=== PATIENT | female | born 1955 | race Caucasian/White ===

== ENCOUNTER 2017-10-04 13:30 | Inpatient (IN) | payer BC, OTHER ==
[~2017-10-04] VITALS: Ht 165.1 cm; Wt 49.9 kg
[2017-10-04] MEDS ORDERED: CYAN100071 PO (14:53)
[2017-10-04] MEDS ORDERED: CLON0.1T PO (14:53)
[2017-10-04] MEDS ORDERED: DICY10CA13 PO (14:53)
[2017-10-04] MEDS ORDERED: AMPH20CA3 PO (14:53)
[2017-10-04] MEDS ORDERED: MAG HYDROX/AL HYDROX/SIMETH 30 ML LIQUID UDC PO PRN (15:00)
[2017-10-04] MEDS ORDERED: MAGNESIUM HYDROXIDE 30 ML LIQUID UDC PO PRN (15:00)
[2017-10-04] MEDS ORDERED: DIAZEPAM 5 MG TABLET PO PRN (15:00)
[2017-10-04] MEDS ORDERED: IBUPROFEN 600 MG TABLET PO PRN (15:00)
[2017-10-04] MEDS ORDERED: DOCUSATE SODIUM 250 MG CAPSULE PO PRN (15:00)
[2017-10-04] MEDS ORDERED: LORAZEPAM 2 MG/1 ML VIAL IM PRN (15:00)
[2017-10-04] MEDS ORDERED: DIAZEPAM 10 MG TABLET PO PRN (15:00)
[2017-10-04] MEDS ORDERED: CLONIDINE HCL 0.1 MG TABLET PO PRN (15:00)
[2017-10-04] MEDS ORDERED: METHOCARBAMOL 750 MG TABLET PO PRN (15:00)
[2017-10-04] MEDS ORDERED: LOPERAMIDE HCL 2 MG CAPSULE PO PRN ×2 (15:00)
[2017-10-04 15:26] LABS: *URINE HCG, QUAL NEGATIVE (NEGATIVE)
[2017-10-04 15:34] LABS: *AMPHETAMINE, URINE POSITIVE (NEGATIVE); *BARBITURATE, URINE NEGATIVE (NEGATIVE); *CANNABINOID, URINE NEGATIVE (NEGATIVE); *COCCAINE, URINE NEGATIVE (NEGATIVE); *OPIATE, URINE NEGATIVE (NEGATIVE); *PHENCYCLIDINE SCREEN,URINE NEGATIVE (NEGATIVE)
[2017-10-04 15:54] LABS: BASOPHILS # (AUTO) 0.1 K/uL (0.0-8.0); EOSINOPHILS % (AUTO) 0.2 % (0.0-7.0); HEMATOCRIT 40.7 % (31.2-41.9); HEMOGLOBIN 13.9 g/dL (10.9-14.3); LYMPHOCYTES # (AUTO) 2.2 K/uL (20.0-40.0); LYMPHOCYTES % (AUTO) 24.3 % (20.5-51.5); MEAN CORPUSCULAR HEMOGLOBIN 30.6 uug (24.7-32.8); MEAN CORPUSCULAR HGB CONC 34 g/dL (32.3-35.6); MEAN CORPUSCULAR VOLUME 89.7 fL (75.5-95.3); MONOCYTES # (AUTO) 0.8 K/uL (2.0-10.0); MONOCYTES % (AUTO) 8.9 % (0.0-11.0); NEUTROPHILS # (AUTO) 5.8 K/uL (1.8-8.9); NEUTROPHILS % (AUTO) 65.6 % (38.5-71.5); PLATELET COUNT (AUTO) 336 K/uL (179-408); RED BLOOD CELL COUNT(AUTO) 4.54 MIL/uL (3.63-4.92); WHITE BLOOD COUNT (AUTO) 8.9 K/uL (3.8-11.8)
[2017-10-04 15:56] VITALS: BP 132/79
[2017-10-04] MEDS: DIAZEPAM 10 MG TABLET PO SCH ×3 (15:58→21:03)
[2017-10-04 16:05] LABS: ALANINE AMINOTRANSFERASE 15 U/L (14-59); ALKALINE PHOSPHATASE 114 U/L (50-136); ASPARTATE AMINOTRANSFERASE 13 U/L (15-37); BILIRUBIN,TOTAL 0.3 mg/dL (0.2-1.0); CARBON DIOXIDE 27 mmol/L (21-32); CHLORIDE 103 mmol/L (98-107); CHOLESTEROL 237 mg/dL (<200); CREATININE 0.8 mg/dL (0.6-1.3); GLUCOSE 106 mg/dL (74-106); HDL CHOLESTEROL 83 mg/dL (40-60); MAGNESIUM 1.9 mg/dL (1.8-2.4); POTASSIUM 3.9 mmol/L (3.5-5.1); TOTAL PROTEIN, SERUM 7.9 g/dL (6.4-8.2); TRIGLYCERIDES 145 MG/DL (30-150); UREA NITROGEN, BLOOD 19 mg/dL (7-18)
[2017-10-04 16:14] LABS: THYROID STIMULATING HORMONE 0.942 mIU/mL (0.358-3.740)
[2017-10-04] MEDS ORDERED: DICL100G16 TP (16:18)
[2017-10-04] MEDS ORDERED: ALBU8.5H8 INH (16:19)
[2017-10-04 17:13] VITALS: BP 130/73
[2017-10-04] MEDS ORDERED: PATIENT MAY USE OWN MED- MD OK TOP PRN (17:15)
[2017-10-04] MEDS ORDERED: PATIENT MAY USE OWN MED- MD OK INH PRN (17:15)
[2017-10-04] MEDS: ONDANSETRON ODT 4 MG TAB.RAPDIS SL PRN (18:27)
[2017-10-04 18:34] LABS: ETHANOL < 3 MG/DL (0-0)
[2017-10-04 20:00] VITALS: BP 118/80
[2017-10-04] MEDS: ACETAMINOPHEN 325 MG TABLET PO PRN (21:02)
[2017-10-04] MEDS: diphenhydrAMINE 50 MG CAPSULE PO PRN (21:03)
[2017-10-04] MEDS: DICYCLOMINE HCL 20 MG TABLET PO PRN (21:03)
[2017-10-04] MEDS: ONDANSETRON 4 MG/2 ML VIAL IM PRN (21:28)
[2017-10-05] VITALS: BP 118/82
[2017-10-05] MEDS: HYDROXYZINE PAMOATE 25 MG CAPSULE PO PRN ×3 (00:10→22:05)
[2017-10-05 04:00] VITALS: BP 113/66
[2017-10-05] MEDS: DIAZEPAM 10 MG TABLET PO PRN (04:35)
[2017-10-05] MEDS: ONDANSETRON 4 MG/2 ML VIAL IM PRN ×3 (06:46→21:03)
[2017-10-05] MEDS ORDERED: TUBERCULIN,PURIF.PROT.DERIV. 5 TU/0.1 ML TEST ID ONE (09:00)
[2017-10-05 09:27] VITALS: BP 112/80
[2017-10-05] MEDS: ACETAMINOPHEN 325 MG TABLET PO PRN ×2 (09:31→21:01)
[2017-10-05] MEDS: DICYCLOMINE HCL 20 MG TABLET PO PRN (09:31)
[2017-10-05] MEDS: DIAZEPAM 10 MG TABLET PO SCH ×3 (09:31→21:02)
[2017-10-05 13:15] VITALS: BP 125/74
[2017-10-05 17:05] VITALS: BP 118/72
[2017-10-05 20:00] VITALS: BP 110/73
[2017-10-05] MEDS: CLONIDINE HCL 0.1 MG TABLET PO SCH (21:01)
[2017-10-05] MEDS: BACLOFEN 10 MG TABLET PO SCH (21:02)
[2017-10-05] MEDS: diphenhydrAMINE 50 MG CAPSULE PO PRN (22:05)
[2017-10-06] VITALS: BP 94/66
[2017-10-06] MEDS: DIAZEPAM 10 MG TABLET PO PRN (00:19)
[2017-10-06 08:00] VITALS: BP 94/66
[2017-10-06] MEDS: BACLOFEN 10 MG TABLET PO SCH ×2 (09:10→21:21)
[2017-10-06] MEDS: DIAZEPAM 5 MG TABLET PO SCH ×3 (09:11→16:21)
[2017-10-06] MEDS: CLONIDINE HCL 0.1 MG TABLET PO SCH ×2 (09:11→21:21)
[2017-10-06] MEDS: ACETAMINOPHEN 325 MG TABLET PO PRN (09:21)
[2017-10-06] MEDS: MIRALAX 17 GM POWD.PACK PO PRN (09:21)
[2017-10-06] MEDS: ONDANSETRON 4 MG/2 ML VIAL IM PRN ×2 (09:21→18:10)
[2017-10-06 12:00] VITALS: BP 119/86
[2017-10-06] MEDS: KETOROLAC TROMETHAMINE 30 MG INJ IM PRN (12:51)
[2017-10-06 13:06] LABS: HEPATITIS B SURFACE AG Negative (Negative)
[2017-10-06] MEDS: DICYCLOMINE HCL 20 MG TABLET PO SCH ×2 (14:47→21:21)
[2017-10-06 16:00] VITALS: BP 106/66
[2017-10-06 20:00] VITALS: BP 132/74
[2017-10-06] MEDS ORDERED: TRAZODONE 50 MG TABLET PO PRN (21:00)
[2017-10-06] MEDS ORDERED: DIAZEPAM 10 MG TABLET PO SCH (21:00)
[2017-10-07] VITALS: BP 112/67
[2017-10-07] MEDS: HYDROXYZINE PAMOATE 25 MG CAPSULE PO PRN ×2 (00:37→23:21)
[2017-10-07] MEDS: ONDANSETRON ODT 4 MG TAB.RAPDIS SL PRN (00:42)
[2017-10-07] MEDS: KETOROLAC TROMETHAMINE 30 MG INJ IM PRN ×3 (00:44→23:22)
[2017-10-07 04:11] LABS: VIT D, 25-HYDROXY 18.4 ng/mL (30.0-100.0)
[2017-10-07 09:02] VITALS: BP 99/60
[2017-10-07] MEDS: CLONIDINE HCL 0.1 MG TABLET PO SCH (09:05)
[2017-10-07] MEDS: BACLOFEN 10 MG TABLET PO SCH (09:05)
[2017-10-07] MEDS: DIAZEPAM 5 MG TABLET PO SCH ×3 (09:05→20:33)
[2017-10-07] MEDS: DICYCLOMINE HCL 20 MG TABLET PO SCH ×3 (09:05→20:33)
[2017-10-07] MEDS: FAMOTIDINE 20 MG TABLET PO SCH (09:05)
[2017-10-07] MEDS: MIRALAX 17 GM POWD.PACK PO PRN (09:09)
[2017-10-07] MEDS: MAGNESIUM CITRATE 296 ML BOTTLE PO PRN (13:02)
[2017-10-07] MEDS: DOCUSATE SODIUM 250 MG CAPSULE PO SCH (13:02)
[2017-10-07 13:26] VITALS: BP 98/65
[2017-10-07] MEDS: ONDANSETRON 4 MG/2 ML VIAL IM PRN (13:57)
[2017-10-07 17:00] VITALS: BP 110/71
[2017-10-07 20:00] VITALS: BP 119/65
[2017-10-07] MEDS: BACLOFEN 20 MG TABLET PO SCH (20:34)
[2017-10-07] MEDS: CLONIDINE HCL 0.2 MG TABLET PO SCH (20:34)
[2017-10-08] VITALS: BP 110/68
[2017-10-08] MEDS: HYDROXYZINE PAMOATE 25 MG CAPSULE PO PRN ×2 (06:24→21:58)
[2017-10-08] MEDS: KETOROLAC TROMETHAMINE 30 MG INJ IM PRN (06:58)
[2017-10-08 08:42] VITALS: BP 109/74
[2017-10-08] MEDS: FAMOTIDINE 20 MG TABLET PO SCH (09:05)
[2017-10-08] MEDS: CHOLECALCIFEROL 1,000 UNIT TABLET PO SCH (09:05)
[2017-10-08] MEDS: DIAZEPAM 5 MG TABLET PO SCH ×2 (09:05→21:58)
[2017-10-08] MEDS: DICYCLOMINE HCL 20 MG TABLET PO SCH ×3 (09:05→21:58)
[2017-10-08] MEDS: BACLOFEN 20 MG TABLET PO SCH ×3 (09:06→21:59)
[2017-10-08] MEDS: CLONIDINE HCL 0.1 MG TABLET PO SCH (09:06)
[2017-10-08] MEDS: DOCUSATE SODIUM 250 MG CAPSULE PO SCH (09:06)
[2017-10-08 13:41] VITALS: BP 117/66
[2017-10-08] MEDS ORDERED: IBUPROFEN 800 MG TABLET PO PRN (14:15)
[2017-10-08] MEDS ORDERED: OXCARBAZEPINE 150 MG TABLET PO SCH (15:00)
[2017-10-08 17:40] VITALS: BP 104/51
[2017-10-08] MEDS: ONDANSETRON 4 MG/2 ML VIAL IM PRN (18:19)
[2017-10-08 20:00] VITALS: BP 139/68
[2017-10-08] MEDS: OXCARBAZEPINE 150 MG TABLET PO SCH (21:58)
[2017-10-08] MEDS: CLONIDINE HCL 0.2 MG TABLET PO SCH (21:59)
[2017-10-09] MEDS: KETOROLAC TROMETHAMINE 30 MG INJ IM PRN ×4 (02:41→21:50)
[2017-10-09 04:00] VITALS: BP 135/80
[2017-10-09 08:52] VITALS: BP 123/68
[2017-10-09] MEDS: CHOLECALCIFEROL 1,000 UNIT TABLET PO SCH (08:55)
[2017-10-09] MEDS: OXCARBAZEPINE 150 MG TABLET PO SCH (08:55)
[2017-10-09] MEDS: BACLOFEN 20 MG TABLET PO SCH ×3 (08:55→20:28)
[2017-10-09] MEDS: DOCUSATE SODIUM 250 MG CAPSULE PO SCH (08:55)
[2017-10-09] MEDS: FAMOTIDINE 20 MG TABLET PO SCH (08:56)
[2017-10-09] MEDS: CLONIDINE HCL 0.1 MG TABLET PO SCH (08:56)
[2017-10-09] MEDS: DICYCLOMINE HCL 20 MG TABLET PO SCH ×3 (08:56→20:28)
[2017-10-09] MEDS ORDERED: DIAZEPAM 5 MG TABLET PO SCH (09:00)
[2017-10-09] MEDS: MIRALAX 17 GM POWD.PACK PO PRN (09:00)
[2017-10-09] MEDS: HYDROXYZINE PAMOATE 25 MG CAPSULE PO PRN ×2 (12:09→21:49)
[2017-10-09] MEDS: ACETAMINOPHEN 325 MG TABLET PO PRN (12:09)
[2017-10-09 12:21] VITALS: BP 116/87
[2017-10-09] MEDS: MAGNESIUM CITRATE 296 ML BOTTLE PO PRN (14:40)
[2017-10-09 16:54] VITALS: BP 131/69
[2017-10-09] MEDS ORDERED: IBUP-1957 PO (17:07)
[2017-10-09] MEDS ORDERED: ACET325T53 PO (17:07)
[2017-10-09] MEDS ORDERED: BACL20TA PO (17:07)
[2017-10-09] MEDS ORDERED: DICY20TA28 PO (17:07)
[2017-10-09] MEDS ORDERED: MULT-24 PO (17:07)
[2017-10-09] MEDS ORDERED: FAMO20TA8 PO (17:07)
[2017-10-09] MEDS ORDERED: CHOL10002 PO (17:07)
[2017-10-09] MEDS ORDERED: CLON0.1T14 PO (17:07)
[2017-10-09] MEDS ORDERED: HYDR-3895 PO (17:07)
[2017-10-09 20:00] VITALS: BP 106/68
[2017-10-09] MEDS: CLONIDINE HCL 0.2 MG TABLET PO SCH (20:28)
[2017-10-10] VITALS: BP 108/76
[2017-10-10] MEDS: HYDROXYZINE PAMOATE 25 MG CAPSULE PO PRN (04:51)
[2017-10-10] MEDS: KETOROLAC TROMETHAMINE 30 MG INJ IM PRN (04:52)
[2017-10-10 05:00] VITALS: BP 114/62
[2017-10-10 08:23] VITALS: BP 119/80
[2017-10-10] MEDS: DICYCLOMINE HCL 20 MG TABLET PO SCH (08:57)
[2017-10-10] MEDS: FAMOTIDINE 20 MG TABLET PO SCH (08:57)
[2017-10-10] MEDS: BACLOFEN 20 MG TABLET PO SCH (08:57)
[2017-10-10] MEDS: CHOLECALCIFEROL 1,000 UNIT TABLET PO SCH (08:57)
[2017-10-10] MEDS: DOCUSATE SODIUM 250 MG CAPSULE PO SCH (08:57)
[2017-10-10 08:58] VITALS: BP 119/80
[2017-10-10] MEDS: CLONIDINE HCL 0.1 MG TABLET PO SCH (08:58)
[2017-10-10] MEDS ORDERED: MULTIVITAMINS,THERAPEUTIC TABLET PO SCH (09:00)
== END 2017-10-10 09:24 | disposition other institution (70) | DRG 895 ==
LOC: SRC 13:30
PROVIDERS: ADMIT Internal Medicine; ATTEND Internal Medicine
PROC: HZ2ZZZZ Detoxification Services for Substance Abuse Treatment (ICD-10-PCS; principal; 2017-10-04)
PROC: HZ41ZZZ Group Counseling for Substance Abuse Treatment, Behavioral (ICD-10-PCS; 2017-10-05)
PROC: HZ31ZZZ Individual Counseling for Substance Abuse Treatment, Behavioral (ICD-10-PCS; 2017-10-07)
DX: F13.232 Sedative, hypnotic or anxiolytic dependence with withdrawal with perceptual disturbance (principal); F50.9 Eating disorder, unspecified; E78.5 Hyperlipidemia, unspecified; G50.0 Trigeminal neuralgia; F11.23 Opioid dependence with withdrawal; K58.0 Irritable bowel syndrome with diarrhea; G89.4 Chronic pain syndrome; F41.9 Anxiety disorder, unspecified; F90.9 Attention-deficit hyperactivity disorder, unspecified type; T78.40XD Allergy, unspecified, subsequent encounter; X58.XXXD Exposure to other specified factors, subsequent encounter; F51.04 Psychophysiologic insomnia; F32.9 Major depressive disorder, single episode, unspecified; F15.10 Other stimulant abuse, uncomplicated; E55.9 Vitamin D deficiency, unspecified; E86.0 Dehydration; Z90.710 Acquired absence of both cervix and uterus; Z82.49 Family history of ischemic heart disease and other diseases of the circulatory system; Z82.0 Family history of epilepsy and other diseases of the nervous system; Z81.1 Family history of alcohol abuse and dependence
CPT/HCPCS: 36415; 70030-TC; 80307; 80324; 80346; 82306; 83735; 84443; 84703; 85025; 86580; 86592; 86705; 86803; 87340; 87806; A4663; G0480; J1885; J2405; Q0162; Q0163